=== PATIENT | female | born 1970 | race Caucasian/White ===

== ENCOUNTER 2018-02-07 13:41 | Emergency (ER) | payer BC, OTHER ==
[2018-02-07 13:42] VITALS: BMI 33.4
[2018-02-07 13:58] VITALS: PULSE 70; RESP 20; TEMP 98.4; O2SAT 98
--- NOTE | 2018-02-07 15:59 | ED PDOC ---
Syncope/Near Syncope/Dizziness Time Seen by Provider: 02/07/18 14:40 Chief Complaint (Nursing): Dizziness/Lightheaded Chief Complaint (Provider): Dizziness/Lightheaded History Per: Patient History/Exam Limitations: no limitations Onset/Duration Of Symptoms: Days Current Symptoms Are (Timing): Still Present Activity At Onset Of Symptoms: Walking Associated Symptoms Preceding Syncopal Episode: Lightheadedness Seizure Or Post-ictal Symptoms: None Fall Associated With With Symptoms: Yes, No Injury As Result Of Fall Additional Complaint(s): 47 y/o female with a PMHx of Anemia, HTN and Fibrosis sent to the ER for evaluation of a near syncopal episode, onset prior to arrival. 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 Patient reports of feeling dizzy right before near syncopal episode associated with weakness, sweats, lightheadedness and chest fluttering. Patient reports over the past month, she has been having irregular menstrual periods. Patient states menstruation has been constant but some days are onion topper than others. Patient reports of being seen by PMD and had lab work performed. Results showed low iron. While working today before near syncopal episode, patient denies loosing consciousness and head injury. Patient reports of immediately sitting down at onset of symptoms. Otherwise, patient additionally denies fever, vomiting and diarrhea. PMD: in [facility]: Dr. Willis Past Medical History Reviewed: Historical Data, Nursing Documentation, Vital Signs Vital Signs: Last Vital Signs Temp 98.4 F 02/07/18 13:45 Pulse 70 02/07/18 13:45 Resp 20 02/07/18 13:45 BP 122/80 02/07/18 13:45 Pulse Ox 98 02/07/18 13:45 - Medical History PMH: Anemia, HTN Denies: Chronic Kidney Disease Other PMH: Fibroids - Surgical History Surgical History: Endoscopy Other surgeries: Lab Band in 2014 - Family History Family History: States: Unknown Family Hx - Immunization History Hx Tetanus Toxoid Vaccination: No Hx Influenza Vaccination: No Hx Pneumococcal Vaccination: No - Home Medications Home Medications: Ambulatory Orders Medication Instructions Recorded RX: Lisinopril 2.5 mg PO DAILY 01/20/15 RX: Ferrous Sulfate 325 mg PO DAILY #14 tablet 02/07/18 - Allergies Allergies/Adverse Reactions: Allergies Allergy/AdvReac Type Severity Reaction Status Date / Time No Known Allergies Allergy Verified 02/07/18 13:44 Review of Systems ROS Statement: Except As Marked, All Systems Reviewed And Found Negative Constitutional: Positive for: Sweats. Negative for: Fever Cardiovascular: Positive for: Other Gastrointestinal: Negative for: Vomiting, Diarrhea Musculoskeletal: Negative for: Other (head injury) Neurological: Positive for: Dizziness (and lightheadedness). Negative for: Other (loss of consciousness) Physical Exam - Reviewed Nursing Documentation Reviewed: Yes Vital Signs Reviewed: Yes - Physical Exam Appears: Positive for: No Acute Distress Head Exam: Positive for: ATRAUMATIC, NORMAL INSPECTION, NORMOCEPHALIC Skin: Positive for: Normal Color, Warm, Dry Eye Exam: Positive for: Normal appearance ENT: Positive for: Normal ENT Inspection Neck: Positive for: Normal, Painless ROM Cardiovascular/Chest: Positive for: Regular Rate, Rhythm. Negative for: Bradycardia, Tachycardia Respiratory: Negative for: Accessory Muscle Use, Respiratory Distress Gastrointestinal/Abdominal: Positive for: Normal Exam, Soft. Negative for: Tenderness Back: Positive for: Normal Inspection Extremity: Positive for: Normal ROM. 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 Negative for: Motor/Sensory Deficits, Aphasia, Facial Droop - Laboratory Results Result Diagrams: 02/07/18 15:46 02/07/18 15:46 - ECG O2 Sat by Pulse Oximetry: 98 (RA) Pulse Ox Interpretation: Normal Medical Decision Making Medical Decision Making: Time: 1546 Plan: presyncope, rule out electrolyte abnormality, infection -- Type and Screen -- CMP -- CBC with Differentials Time: 1640 -- Lab results show an iron deficiency demonstrating microcytic anemia. Patient diagnosed with symptomatic anemia and dizziness. On re-evaluation, patient reports she has been off her iron pills for the past few days.. 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 Patient given a prescription of Ferrous Sulfate for further management of anemia. Scribe Attestation: Documented by Sonja Recinos, acting as a scribe for Susie Gifford MD. Provider Scribe Attestation: All medical record entries made by the Scribe were at my direction and personally dictated by me. I have reviewed the chart and agree that the record accurately reflects my personal performance of the history, physical exam, medical decision making, and the department course for this patient. I have also personally directed, reviewed, and agree with the discharge instructions and disposition. Disposition - Clinical Impression Clinical Impression: Dizziness, Symptomatic anemia - Patient ED Disposition Is Patient to be Admitted: No Counseled Patient/Family Regarding: Studies Performed, Diagnosis, Need For Followup, Rx Given - Disposition Disposition: Routine/Home Disposition Time: 16:40 Condition: IMPROVED Additional Instructions: continue taking iron. follow up with your doctor and kosher dietary service supervisor in 2 days return to the ED with any worsening or concerning symptoms Prescriptions: RX: Ferrous Sulfate 325 mg PO DAILY #14 tablet Instructions: Vertigo (a Type of Dizziness), Anemia Caused by Low Iron, Adult (DC) Forms: [employer] (Australian)
[2018-02-07 16:00] LABS: BASO # 0.1 K/uL (0.0-0.2); BASO % 0.8 % (0.0-2.0); EOS # 0.3 K/uL (0.0-0.7); EOS % 3.9 % (0.0-4.0); HEMOGLOBIN 10.1 g/dL (12.0-16.0); LYMPH # 1.6 K/uL (1.0-4.3); LYMPH % 22.4 % (20.0-40.0); MEAN CELL VOLUME 72.8 fl (81.0-99.0); MEAN CORPUSCULAR HEMOGLOBIN 22.9 pg (27.0-31.0); MEAN CORPUSCULAR HGB CONC 31.5 g/dL (33.0-37.0); MEAN PLATELET VOLUME 8.5 fl (7.2-11.7); MONO # 0.4 K/uL (0.0-0.8); MONO % 5.6 % (0.0-10.0); NEUT # 4.8 K/uL (1.8-7.0); NEUT % 67.3 % (50.0-75.0); RBC 4.4 Mil/uL (3.80-5.20); RED CELL DISTRIBUTION WIDTH 19.8 % (11.5-14.5); WHITE BLOOD COUNT 7.1 K/uL (4.8-10.8)
[2018-02-07 16:08] LABS: ALB/GLOB RATIO 1.1 (1.0-2.1); ALBUMIN 4.1 g/dL (3.5-5.0); ALT/SGPT 27 U/L (9-52); AST/SGOT 29 U/L (14-36); BLOOD UREA NITROGEN 16 mg/dl (7-17); CALCIUM 9.1 mg/dL (8.4-10.2); GFR NON-AFRICAN AMERICAN > 60
[2018-02-07 16:52] VITALS: BP 131/71
== END 2018-02-07 16:52 | disposition home or self-care (01) ==
LOC: H.ER 13:41
DX: R42 Dizziness and giddiness (principal); D50.9 Iron deficiency anemia, unspecified; I10 Essential (primary) hypertension

== ENCOUNTER 2018-05-16 08:08 | Emergency (ER) | payer OTHER ==
[2018-05-16 08:08] VITALS: BMI 33.4
--- NOTE | 2018-05-16 08:39 | ED PDOC ---
HPI: Chest Pain Time Seen by Provider: 05/16/18 08:27 Chief Complaint (Nursing): Chest Pain Chief Complaint (Provider): Chest Pain History Per: Patient History/Exam Limitations: no limitations Onset/Duration Of Symptoms: Hrs Current Symptoms Are (Timing): Gone Now Quality: Tightness Additional Complaint(s): 48 year old female with a past medical history of hypertension who is presenting to the ED for evaluation of left sided chest tightness onset this morning. Patient states that pain is non-crushing and not associated with shortness of br eath. She reports that pain went away on its own and admits that she has had similar episodes in the past but was never diagnosed with a heart problem. Patient admits that she is concerned as in the fathers side of the family, she has multiple relatives with heart conditions. She offers no other medical complaints at this time. PMD: Edwardo Martinez Past Medical History Reviewed: Historical Data, Nursing Documentation, Vital Signs Vital Signs: Last Vital Signs Temp 98 F 05/16/18 08:21 Pulse 96 H 05/16/18 08:21 Resp 18 05/16/18 08:21 BP 124/79 05/16/18 08:21 Pulse Ox 98 05/16/18 08:21 - Medical History PMH: Anemia, HTN Denies: Chronic Kidney Disease - Surgical History Surgical History: Endoscopy - Family History Family History: States: Unknown Family Hx Other Family History: Father's side of family: heart problems - Social History Current smoker - smoking cessation education provided: Yes (heavy ) Alcohol: None Drugs: Denies - Immunization History Hx Tetanus Toxoid Vaccination: No Hx Influenza Vaccination: No Hx Pneumococcal Vaccination: No - Home Medications Home Medications: Ambulatory Orders Medication Instructions Recorded Lisinopril 2.5 mg PO DAILY 01/20/15 Ferrous Sulfate 325 mg PO DAILY #14 tablet 02/07/18 - Allergies Allergies/Adverse Reactions: Allergies Allergy/AdvReac Type Severity Reaction Status Date / Time No Known Allergies Allergy Verified 05/16/18 08:21 Review of Systems ROS Statement: Except As Marked, All Systems Reviewed And Found Negative Cardiovascular: Positive for: Chest Pain Respiratory: Negative for: Shortness of Breath Physical Exam - Reviewed Nursing Documentation Reviewed: Yes Vital Signs Reviewed: Yes - Physical Exam Appears: Positive for: Well, Non-toxic, No Acute Distress Head Exam: Positive for: ATRAUMATIC Skin: Positive for: Normal Color, Warm, DRY Eye Exam: Positive for: EOMI, Normal appearance, PERRL Neck: Positive for: Normal, Painless ROM Cardiovascular/Chest: Positive for: Regular Rate, Rhythm. Negative for: Murmur Respiratory: Positive for: Normal Breath Sounds. Negative for: Respiratory Distress Gastrointestinal/Abdominal: Positive for: Normal Exam, Soft. Negative for: Tenderness Back: Positive for: Normal Inspection. Negative for: L CVA Tenderness, R CVA Tenderness, Vertebral Tenderness Extremity: Positive for: Normal ROM. Negative for: Deformity, Swelling Neurologic/Psych: Positive for: Alert, Oriented. Negative for: Motor/Sensory Deficits - Laboratory Results Result Diagrams: 05/16/18 08:45 05/16/18 08:45 - ECG O2 Sat by Pulse Oximetry: 98 (RA) Pulse Ox Interpretation: Normal Medical Decision Making Medical Decision Making: Time: 8:30 A/P: workup for chest pain in low cardiac risk patient --Labs with troponin, EKG, and chest x-ray --Reassess patient Scribe Attestation: Documented by Muna Goodman, acting as a scribe for Dee Nunez MD. Provider Scribe Attestation: All medical record entries made by the Scribe were at my direction and personally dictated by me. I have reviewed the chart and agree that the record accurately reflects my personal performance of the history, physical exam, medical decision making, and the department course for this patient. I have also personally directed, reviewed, and agree with the discharge instructions and disposition. 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 Return to the emergency department if symptoms worsen. Instructions: Chest Pain That Is Not Caused by the Heart (DC) Forms: [employer] (Greek), [facility] ED School/Work Excuse Print Language: SLOVENIAN
[2018-05-16 09:05] LABS: BASO % 0.8 % (0.0-2.0); EOS # 0.2 K/uL (0.0-0.7); EOS % 3.4 % (0.0-4.0); HEMOGLOBIN 11.9 g/dL (12.0-16.0); LYMPH # 1.5 K/uL (1.0-4.3); LYMPH % 26.4 % (20.0-40.0); MEAN CELL VOLUME 76.8 fl (81.0-99.0); MEAN CORPUSCULAR HEMOGLOBIN 25.1 pg (27.0-31.0); MEAN CORPUSCULAR HGB CONC 32.6 g/dL (33.0-37.0); MEAN PLATELET VOLUME 8.3 fl (7.2-11.7); MONO # 0.3 K/uL (0.0-0.8); MONO % 6.1 % (0.0-10.0); NEUT # 3.5 K/uL (1.8-7.0); NEUT % 63.3 % (50.0-75.0); NRBC % 0.2 % (0.0-0.0); RBC 4.76 Mil/uL (3.80-5.20); RED CELL DISTRIBUTION WIDTH 20.5 % (11.5-14.5); WHITE BLOOD COUNT 5.6 K/uL (4.8-10.8)
[2018-05-16 09:19] LABS: BLOOD UREA NITROGEN 11 mg/dl (7-17); CALCIUM 9.5 mg/dL (8.4-10.2); GFR NON-AFRICAN AMERICAN > 60
--- NOTE | 2018-05-16 09:36 | RAD ---
Date of service: 05/16/2018 HISTORY: cough COMPARISON: 06/27/2015 TECHNIQUE: Chest PA and lateral FINDINGS: LUNGS: No active pulmonary disease. PLEURA: No significant pleural effusion identified. No pneumothorax apparent. CARDIOVASCULAR: No aortic atherosclerotic calcification present. Normal cardiac size. No pulmonary vascular congestion. OSSEOUS STRUCTURES: Sclerotic changes left costomanubrial joint similar Bilateral shoulder arthrosis VISUALIZED UPPER ABDOMEN: Left upper outer quadrant radiopaque tubing and band compatible compatible with prior gastric band procedure OTHER FINDINGS: None. IMPRESSION: No active disease. No interval pathology noted.
[2018-05-16 10:35] VITALS: BP 129/75; PULSE 78; RESP 16; TEMP 97.6; O2SAT 98
--- NOTE | 2018-05-16 13:50 | CARD ---
APPROVED REPORT Date of service: 05/16/2018 EKG Measurement Heart [id number] <Conclusion> Normal sinus rhythm Normal ECG
== END 2018-05-16 10:34 | disposition home or self-care (01) ==
LOC: H.ER 08:08
DX: R07.89 Other chest pain (principal); I10 Essential (primary) hypertension; F17.200 Nicotine dependence, unspecified, uncomplicated